=== PATIENT | female | born 1940 | race Hispanic/Latino ===

== ENCOUNTER 2017-06-08 15:20 | Outpatient (CLI) | payer MEDICARE, OTHER | END 2017-06-08 15:21 | disposition home or self-care (01) | LOC: BICRAD 15:20 | PROVIDERS: ATTEND Family Medicine | DX: M81.0 Age-related osteoporosis without current pathological fracture (principal); M79.89 Other specified soft tissue disorders; M19.071 Primary osteoarthritis, right ankle and foot; M19.041 Primary osteoarthritis, right hand ==

== ENCOUNTER 2017-10-10 08:27 | Outpatient (CLI) | payer MEDICARE, OTHER | END 2017-10-10 08:28 | disposition home or self-care (01) | LOC: BICMAMMO 08:27 | PROVIDERS: ATTEND Family Medicine | DX: Z12.31 Encounter for screening mammogram for malignant neoplasm of breast (principal) | CPT/HCPCS: 77063; 77067 ==

== ENCOUNTER 2019-02-10 11:48 | Outpatient (CLI) | payer MEDICARE, OTHER ==
--- NOTE | 2019-02-10 14:19 | RAD ---
RIGHT RIBS THREE VIEWS: HISTORY: Chest deformity. No history of trauma. FINDINGS: No lytic or blastic bone lesions are seen. There is a slightly undulated appearance to some of the l ower ribs noted. No old or new fracture is identified. IMPRESSION: No acute changes. POS: OFF
--- NOTE | 2019-02-10 14:20 | RAD ---
CHEST ONE VIEW: HISTORY: Chest wall deformity. FINDINGS: Heart size is enlarged. The aorta is tortuous. There is linear scarring in the lung bases. The bon es appear demineralized. IMPRESSION: Cardiomegaly with some chronic lung change. POS: OFF
--- NOTE | 2019-02-10 17:16 | MMO ---
Bilateral MAMMO Bilat Screen [facility]. CLINICAL HISTORY: Patient is 78 years old and is seen for screening. The patient has no family history of breast cancer. The patient has no personal history of cancer. VIEWS: The views performed were: bilateral craniocaudal with tomosynthesis and bilateral mediolateral oblique with tomosynthesis. FILMS COMPARED: The present examination has been compared to prior imaging studies performed at [facility] on 09/08/2014, 09/10/2015, 10/02/2016 and 10/10/2017. This study has been interpreted with the assistance of computer-aided detection. MAMMOGRAM FINDINGS: There are scattered fibroglandular densities. There are stable benign appearing calcifications seen in both breasts. There are no suspicious masses, calcifications or areas of architectural distortion. There are no suspicious masses, suspicious calcifications, or new areas of architectural distortion. IMPRESSION: THERE IS NO MAMMOGRAPHIC EVIDENCE OF MALIGNANCY. A ROUTINE FOLLOW-UP MAMMOGRAM IN 1 YEAR IS RECOMMENDED. THE RESULTS OF THIS EXAM WERE SENT TO THE PATIENT. ACR BI-RADS Category 2 - Benign finding MAMMOGRAPHY NOTE: 1. A negative mammogram report should not delay a biopsy if a dominant of clinically suspicious mass is present. 2. Approximately 10% to 15% of breast cancers are not detected by mammography. 3. Adenosis and dense breasts may obscure an underlying neoplasm. Reported by: EDYTA VAUGHN MD Electonically Signed: [id number]
== END 2019-02-10 11:49 | disposition home or self-care (01) ==
LOC: BICMAMMO 11:48
PROVIDERS: ATTEND Family Medicine
DX: Z12.31 Encounter for screening mammogram for malignant neoplasm of breast (principal); M95.4 Acquired deformity of chest and rib; R91.8 Other nonspecific abnormal finding of lung field; I51.7 Cardiomegaly
CPT/HCPCS: 71045; 77063; 77067

== ENCOUNTER 2020-03-15 15:03 | Outpatient (CLI) | payer MEDICARE, OTHER ==
--- NOTE | 2020-03-15 15:41 | MMO ---
Bilateral MAMMO Bilat Screen [facility]. CLINICAL HISTORY: Patient is 80 years old and is seen for screening. The patient has no family history of breast cancer. The patient has no personal history of cancer. VIEWS: The views performed were: bilateral craniocaudal with tomosynthesis and bilateral mediolateral oblique with tomosynthesis. FILMS COMPARED: The present examination has been compared to prior imaging studies performed at [facility] on 09/10/2015, 10/02/2016, 10/10/2017 and 02/10/2019. This study has been interpreted with the assistance of computer-aided detection. MAMMOGRAM FINDINGS: There are scattered fibroglandular densities. There are vascular calcifications seen in both breasts. There are no suspicious masses, suspicious calcifications, or new areas of architectural distortion. IMPRESSION: A ROUTINE FOLLOW-UP MAMMOGRAM IN 1 YEAR IS RECOMMENDED. THE RESULTS OF THIS EXAM WERE SENT TO THE PATIENT. ACR BI-RADS Category 2 - Benign finding MAMMOGRAPHY NOTE: 1. A negative mammogram report should not delay a biopsy if a dominant of clinically suspicious mass is present. 2. Approximately 10% to 15% of breast cancers are not detected by mammography. 3. Adenosis and dense breasts may obscure an underlying neoplasm. Reported by: KARINA AHUJA MD Electonically Signed: [id number]
== END 2020-03-15 15:04 | disposition home or self-care (01) ==
LOC: BICMAMMO 15:03
PROVIDERS: ATTEND Family Medicine
DX: Z12.31 Encounter for screening mammogram for malignant neoplasm of breast (principal)
CPT/HCPCS: 77063; 77067

== ENCOUNTER 2021-03-16 09:35 | Outpatient (CLI) | payer MEDICARE, MEDICAID | END 2021-03-16 09:36 | disposition home or self-care (01) | LOC: BICMAMMO 09:35 | PROVIDERS: ATTEND Family Medicine | DX: Z12.31 Encounter for screening mammogram for malignant neoplasm of breast (principal); Z13.820 Encounter for screening for osteoporosis; M81.0 Age-related osteoporosis without current pathological fracture; Z79.83 Long term (current) use of bisphosphonates | CPT/HCPCS: 77063; 77067; 77080 ==

== ENCOUNTER 2021-12-15 14:36 | Inpatient (IN) | payer OTHER, MEDICAID ==
[~2021-12-15 14:36] MED LIST: ISOVUE-370 76%-LOCM 1 ML ONE
[2021-12-15 15:07] LABS: #Lymphocytes 1.5 thou/uL (1.20-3.40); #Monocytes 0.4 thou/uL (0.11-0.59); #Neutrophils 6.6 thou/uL (1.40-6.50); %Basophils 0.2 % (0.0-1.0); %Eosinophils 0.4 % (0.0-10.0); %Lymphocytes 17.8 % (21.0-51.0); %Monocytes 4.8 % (0.0-10.0); %Neutrophils 76.7 % (42.0-75.0); Hemoglobin 8.8 g/dL (12.0-16.0); Mean Corpuscular HGB CONC 30.9 g/dL (32.0-36.0); Mean Corpuscular Hemoglobin 31.1 pg (27.0-31.0); Mean Platelet Volume 8.8 fL (7.4-10.4); Platelet Count 250 thou/uL (130-400); RBC Distribution Width 14.6 % (11.5-14.5); Red Blood Cell (RBC) Count 2.83 mill/uL (4.20-5.40); White Blood Cell (WBC) Count 8.5 thou/uL (4.8-10.8)
[2021-12-15] MEDS ORDERED: Tenecteplase 50 MG - STEMI KIT ONE (15:07)
[2021-12-15 15:18] LABS: Prothrombin Time 14.3 sec (12.0-14.7)
[2021-12-15 15:19] LABS: INR-International Normal Ratio 1.1; PTT 43.1 sec (22.9-36.1)
[2021-12-15 15:41] LABS: ALT (SGPT) 17 U/L (8-55); AST (SGOT) 28 U/L (5-34); Albumin 2.1 g/dL (3.4-4.8); Alkaline Phosphatase 99 U/L (40-110); Anion Gap 13 mmol/L (10-20); BUN (Urea Nitrogen) 27 mg/dL (9.8-20.1); Bilirubin, Total 0.4 mg/dL (0.2-1.2); CK (CPK) 33 U/L (29-168); Calc. Creatinine Clearance 0 mL/min (70-130); Calcium 8.1 mg/dL (7.8-10.44); Carbon Dioxide 23 mmol/L (23-31); Chloride 103 mmol/L (98-107); Estimated GFR 37; Globulin 2.8 g/dL (2.4-3.5); Glucose 105 mg/dL (83-110); Potassium 5.6 mmol/L (3.5-5.1); Protein, Total 4.9 g/dL (5.8-8.1); Sodium 133 mmol/L (136-145)
[2021-12-15] MEDS ORDERED: hydrALAZINE 20 MG/ML VIAL SLOW IVP PRN (16:12)
[2021-12-15] MEDS ORDERED: Communication Order-Pharmacy FS PRN (16:12)
[2021-12-15] MEDS ORDERED: Labetalol HCl 100 MG/20 ML VIAL SLOW IVP PRN (16:12)
[2021-12-15] MEDS ORDERED: Acetaminophen 325 MG TAB PO PRN (16:12)
[2021-12-15] MEDS ORDERED: niCARdipine 25 MG in Sodium Chloride 0.9% 250 ML 250 ML IVPB PRN (16:12)
[2021-12-15] MEDS ORDERED: Fentanyl 100 MCG/2 ML VIAL ONE (16:25)
[2021-12-15] MEDS ORDERED: Dextrose 50% Abboject 50 ML SYRINGE SLOW IVP PRN (16:32)
[2021-12-15] MEDS ORDERED: HumaLOG 300 UNITS/3 ML VIAL SC PRN (16:32)
[2021-12-15] MEDS ORDERED: Dextrose 5% in Water 1,000 ML IV PRN (16:32)
[2021-12-15] MEDS ORDERED: Ondansetron PF 4 MG/2 ML Vial ONE (18:14)
[2021-12-15] MEDS: Sodium Chloride 0.9% 1,000 ML IV SCH (18:25)
[2021-12-15 20:53] LABS: SARS-CoV-2 NAA Rapid Test Not Detected (NotDetected)
[2021-12-15] MEDS: Atorvastatin Calcium 40 MG TAB PO SCH (21:36)
[2021-12-16] MEDS: Sodium Chloride 0.9% 1,000 ML IV SCH (03:24)
[2021-12-16] MEDS: Dextrose 5 % And 0.9 % NaCl 1,000 ML IV SCH (10:00)
[2021-12-16 16:03] LABS: Cardiac Risk 2.4 (Less than 4.5)
[2021-12-16] MEDS: Atorvastatin Calcium 40 MG TAB PO SCH (21:24)
[2021-12-16] MEDS: Aspirin 325 mg Enteric Coated Tablet PO SCH (21:25)
[2021-12-16] MEDS: Aspirin 300 MG Suppository PR SCH (21:35)
[2021-12-16 21:54] LABS: #Lymphocytes 0.6 thou/uL (1.20-3.40); #Monocytes 0.4 thou/uL (0.11-0.59); #Neutrophils 5.9 thou/uL (1.40-6.50); %Basophils 0.6 % (0.0-1.0); %Eosinophils 0.2 % (0.0-10.0); %Lymphocytes 9.2 % (21.0-51.0); %Monocytes 5.9 % (0.0-10.0); %Neutrophils 84.1 % (42.0-75.0); Hemoglobin 7.5 g/dL (12.0-16.0); Mean Corpuscular HGB CONC 32.8 g/dL (32.0-36.0); Mean Corpuscular Hemoglobin 32.3 pg (27.0-31.0); Mean Corpuscular Volume 98.4 fL (78.0-98.0); Mean Platelet Volume 8.2 fL (7.4-10.4); Platelet Count 206 thou/uL (130-400); RBC Distribution Width 14.5 % (11.5-14.5); Red Blood Cell (RBC) Count 2.32 mill/uL (4.20-5.40)
[2021-12-16 22:13] LABS: Anion Gap 10 mmol/L (10-20); BUN (Urea Nitrogen) 22 mg/dL (9.8-20.1); Calc. Creatinine Clearance 20 mL/min (70-130); Calcium 7.6 mg/dL (7.8-10.44); Carbon Dioxide 22 mmol/L (23-31); Chloride 111 mmol/L (98-107); Estimated GFR 49; Glucose 124 mg/dL (83-110); Sodium 139 mmol/L (136-145)
[2021-12-16] MEDS: Enoxaparin Sodium 30 MG/0.3 ML SYRINGE SC SCH (22:43)
[2021-12-16] MEDS: Ondansetron PF 4 MG/2 ML Vial IVP PRN (22:52)
[2021-12-17] MEDS: Dextrose 5 % And 0.9 % NaCl 1,000 ML IV SCH (09:18)
[2021-12-17] MEDS: Pantoprazole 40 MG VIAL IVP SCH (09:20)
[2021-12-17] MEDS: Morphine 2 MG/ML VIAL SLOW IVP PRN (18:59)
[2021-12-17] MEDS: Aspirin 300 MG Suppository PR SCH (21:42)
[2021-12-17] MEDS: Enoxaparin Sodium 30 MG/0.3 ML SYRINGE SC SCH (21:42)
[2021-12-17] MEDS: Atorvastatin Calcium 40 MG TAB PO SCH (21:57)
[2021-12-17] MEDS: Aspirin 325 mg Enteric Coated Tablet PO SCH (21:57)
[2021-12-18 05:20] LABS: #Basophils 0.1 thou/uL (0.0-0.2); #Eosinphils 0.1 thou/uL (0.0-0.7); #Lymphocytes 0.7 thou/uL (1.20-3.40); #Monocytes 0.3 thou/uL (0.11-0.59); #Neutrophils 5.2 thou/uL (1.40-6.50); %Basophils 0.9 % (0.0-1.0); %Eosinophils 1.6 % (0.0-10.0); %Lymphocytes 11.2 % (21.0-51.0); %Monocytes 5.3 % (0.0-10.0); Hemoglobin 8.4 g/dL (12.0-16.0); Mean Corpuscular Hemoglobin 31.7 pg (27.0-31.0); Mean Platelet Volume 8.7 fL (7.4-10.4); Platelet Count 220 thou/uL (130-400); RBC Distribution Width 14.7 % (11.5-14.5); Red Blood Cell (RBC) Count 2.66 mill/uL (4.20-5.40); White Blood Cell (WBC) Count 6.4 thou/uL (4.8-10.8)
[2021-12-18 05:43] LABS: Anion Gap 9 mmol/L (10-20); BUN (Urea Nitrogen) 16 mg/dL (9.8-20.1); Calc. Creatinine Clearance 35 mL/min (70-130); Calcium 7.6 mg/dL (7.8-10.44); Carbon Dioxide 20 mmol/L (23-31); Chloride 113 mmol/L (98-107); Estimated GFR 74; Glucose 76 mg/dL (83-110); Potassium 3.8 mmol/L (3.5-5.1); Sodium 138 mmol/L (136-145)
[2021-12-18] MEDS: Pantoprazole 40 MG VIAL IVP SCH (10:01)
[2021-12-18] MEDS: Morphine 2 MG/ML VIAL SLOW IVP PRN (20:30)
[2021-12-18] MEDS: Atorvastatin Calcium 40 MG TAB PO SCH (20:30)
[2021-12-18] MEDS: Aspirin 300 MG Suppository PR SCH ×2 (20:30→21:47)
[2021-12-18] MEDS: Enoxaparin Sodium 30 MG/0.3 ML SYRINGE SC SCH (20:31)
[2021-12-18] MEDS: Aspirin 325 mg Enteric Coated Tablet PO SCH (21:48)
[2021-12-18] MEDS ORDERED: Melatonin 3 MG TAB PO PRN (22:57)
[2021-12-19 06:35] LABS: Thyroid Stimulating Hormone 3.4233 uIU/mL (0.35-4.94)
[2021-12-19] MEDS ORDERED: Aspirin Chewable 81 MG TAB PO SCH (09:00)
[2021-12-19 09:09] VITALS: BMI 19.2
[2021-12-19] MEDS: Folic Acid 1 MG TAB PO SCH (10:02)
[2021-12-19] MEDS: Cyanocobalamin 1000 MCG/ML VIAL IM SCH (10:02)
[2021-12-19] MEDS: Pantoprazole 40 MG VIAL IVP SCH (10:03)
[2021-12-19] MEDS: Morphine 2 MG/ML VIAL SLOW IVP PRN (10:05)
[2021-12-19 12:49] LABS: Iron 41 ug/dL (50-170); Iron Binding Capacity, Total 104 mcg/dL (265-497)
[2021-12-19 13:07] LABS: CEA, Serum 27.15 ng/mL (< or = 5.0); Ferritin 222.5 ng/mL (10-291)
[2021-12-19] MEDS ORDERED: Iopamidol 370 76% 100 ML VIAL ONE (15:05)
[2021-12-19] MEDS: Acetaminophen 650 MG Suppository PR PRN (20:47)
[2021-12-19] MEDS: Ondansetron PF 4 MG/2 ML Vial IVP PRN (21:00)
[2021-12-19] MEDS: Atorvastatin Calcium 40 MG TAB PO SCH (21:36)
[2021-12-20] MEDS: Acetaminophen 650 MG Suppository PR PRN ×3 (08:00→19:45)
[2021-12-20] MEDS: Cyanocobalamin 1000 MCG/ML VIAL IM SCH (08:00)
[2021-12-20] MEDS: Pantoprazole 40 MG VIAL IVP SCH (08:02)
[2021-12-20] MEDS: Folic Acid 1 MG TAB PO SCH (08:02)
[2021-12-20] MEDS: Atorvastatin Calcium 40 MG TAB PO SCH (20:13)
[2021-12-20 20:58] VITALS: BP 108/65; TEMP 97.1
== END 2021-12-20 20:50 | disposition hospice, home (50) | DRG 61 ==
LOC: ERS 14:36 → ERHOLD 16:12 → CCU 20:26 → NEURO 12-16 22:48
PROVIDERS: ADMIT Internal Medicine; ATTEND Internal Medicine
DX: I63.511 Cerebral infarction due to unspecified occlusion or stenosis of right middle cerebral artery (principal); R29.728 NIHSS score 28; Z66 Do not resuscitate; Z20.822 Contact with and (suspected) exposure to COVID-19; Z51.5 Encounter for palliative care; E43 Unspecified severe protein-calorie malnutrition; G93.41 Metabolic encephalopathy; G93.6 Cerebral edema; N17.9 Acute kidney failure, unspecified; Z68.1 Body mass index [BMI] 19.9 or less, adult; C18.9 Malignant neoplasm of colon, unspecified; C78.7 Secondary malignant neoplasm of liver and intrahepatic bile duct; G81.94 Hemiplegia, unspecified affecting left nondominant side; R64 Cachexia; E78.5 Hyperlipidemia, unspecified; E87.5 Hyperkalemia; R29.810 Facial weakness; M81.0 Age-related osteoporosis without current pathological fracture; R47.81 Slurred speech; R47.1 Dysarthria and anarthria; D53.9 Nutritional anemia, unspecified; R13.12 Dysphagia, oropharyngeal phase; Z53.29 Procedure and treatment not carried out because of patient's decision for other reasons; E11.649 Type 2 diabetes mellitus with hypoglycemia without coma; Z82.3 Family history of stroke; Z79.84 Long term (current) use of oral hypoglycemic drugs
CPT/HCPCS: 36415; 36416; 70450; 70496; 70498; 71260; 74018; 74177; 80048; 80053; 80061; 82105; 82378; 82550; 82607; 82728; 83540; 83550; 84443; 84484; 85025; 85610; 85730; 93005; 93306; 94760; 95712; 95819; 95957; 96374; 96375; C9113; J1650; J2270; J2405; J3010; J3101; J3420; J7042; J7050; J7999; Q9966; Q9967; U0002